=== PATIENT | female | born 1980 | race Hispanic/Latino ===

== ENCOUNTER 2016-12-29 13:57 | Outpatient (CLI) | payer BC ==
--- NOTE | 2016-12-29 15:25 | Ultrasound Report ---
Bilateral diagnostic mammogram with cyst but magnification view of asymmetric density right breast and left breast sonogram: No previous studies available. CAD study utilized. History: Serous discharge left nipple the diffuse left breast pain. Findings: Predominance of adipose tissue bilaterally. Asymmetric density in tip noted at the right breast which effaces on spot compression magnification view. No microcalcification. Normal axilla. Sonogram left breast reveals no cystic or solid mass or dilated ducts. Impression: Benign findings. Annual followup recommended. BI-RADS CATEGORY: 2 = Benign ACR BI-RADS MAMMOGRAPHIC CODES: 0 = Needs additional imaging evaluation; 1 = Negative; 2 = Benign; 3 = Probably benign; 4 = Suspicious; 5 = Malignant; 6 = Known biopsy-proven malignancy COMMENT: 1. Dense breast tissue, i.e., adenosis, fibrocystic changes, etc., may obscure an underlying neoplasm. 2. Approximately 10% of cancers are not detected with mammography. 3. A negative mammography report should not delay biopsy if a clinically suspicious mass is present. COMMENT: Patient follow-up letters are generated in [employer].
== END 2016-12-29 13:58 | disposition home or self-care (01) ==
LOC: SPVWC 13:57
DX: N64.4 Mastodynia (principal); N64.52 Nipple discharge; N64.89 Other specified disorders of breast
CPT/HCPCS: 76641; G0204; 77066